=== PATIENT | male | born 1950 | race Caucasian/White ===

== ENCOUNTER 2019-06-02 08:23 | Day surgery (SDC) | payer MEDICARE ==
[~2019-06-02] VITALS: Ht 170.2 cm; Wt 137.3 kg
[2019-06-02] VITALS (7 sets, daily range): BP systolic 102–149; BP diastolic 55–99
[2019-06-02] MEDS ORDERED: diphenhydrAMINE 25mg capsule PO PRN (09:00)
[2019-06-02] MEDS ORDERED: normal saline 1,000 ML IV SCH (09:00)
[2019-06-02] MEDS ORDERED: midazolam 2 mg/2 ml injection ONE ×2 (09:18→10:48)
[2019-06-02] MEDS ORDERED: LIDOcaine 1% w/EPI 1:100,000 30ml vial (MDV) ONE (09:18)
[2019-06-02] MEDS ORDERED: fentaNYL/PF 50MCG/1 ML 2ML syringe ONE ×2 (09:18→10:48)
[2019-06-02] MEDS ORDERED: vancomycin 1,000mg inj ONE ×2 (09:24→10:54)
[2019-06-02] MEDS ORDERED: ceFAZolin 1GM/D5W- ADD-VANTAGE 100 ML IV ONE (09:24)
[2019-06-02 09:31] LABS: BASOPHILS # (AUTO) 0.1 X10'3 (0-0.2); BASOPHILS % (AUTO) 1.4 % (0-1); EOSINOPHILS # (AUTO) 0.3 X10'3 (0-0.9); HEMATOCRIT 34.1 % (42.0-52.0); HEMOGLOBIN 11.7 g/dl (14.0-17.9); LYMPHOCYTES # (AUTO) 1.4 X10'3 (1.1-4.8); LYMPHOCYTES % (AUTO) 34.4 % (21-51); MEAN CORPUSCULAR HEMOGLOBIN 33.9 PG (27.0-31.0); MEAN CORPUSCULAR HGB CONC 34.4 g/dL (33.0-36.5); MEAN CORPUSCULAR VOLUME 98.6 FL (78-98); MEAN PLATELET VOLUME 7.3 FL (7.4-10.4); MONOCYTES # (AUTO) 0.4 X10'3 (0-0.9); MONOCYTES % (AUTO) 10.1 % (2-12); NEUTROPHILS % (AUTO) 48.1 % (42-75); PLATELET COUNT 169 X10'3 (140-440); RED BLOOD COUNT 3.46 X10'6 (4.70-6.10); RED CELL DISTRIBUTION WIDTH 12.5 % (11.5-14.5); WHITE BLOOD COUNT 4.2 X10'3 (4.5-11.0)
[2019-06-02] MEDS ORDERED: BACL10TA PO (09:32)
[2019-06-02] MEDS ORDERED: ALBU18HF2 INH (09:32)
[2019-06-02] MEDS ORDERED: FISH12002 PO (09:32)
[2019-06-02] MEDS ORDERED: APIX5TAB3 PO (09:32)
[2019-06-02] MEDS ORDERED: PER10325T PO (09:32)
[2019-06-02] MEDS ORDERED: GABA-532 PO (09:32)
[2019-06-02] MEDS ORDERED: iron PO (09:32)
[2019-06-02] MEDS ORDERED: ASPI-1265 PO (09:32)
[2019-06-02] MEDS ORDERED: MULT-933 PO (09:32)
[2019-06-02] MEDS ORDERED: CHOL400C8 PO (09:32)
[2019-06-02] MEDS ORDERED: BUDE10.2 INH (09:32)
[2019-06-02] MEDS ORDERED: POLY1DRO2 OP (09:32)
[2019-06-02] MEDS ORDERED: potassium chloride PO (09:32)
[2019-06-02] MEDS ORDERED: FURO40TA4 PO (09:32)
[2019-06-02] MEDS ORDERED: DOCU-148 PO (09:32)
[2019-06-02] MEDS ORDERED: LOSA25TA96 PO (09:32)
[2019-06-02] MEDS ORDERED: GARL1000 PO (09:32)
[2019-06-02] MEDS ORDERED: PROP1DRO7 OP (09:32)
[2019-06-02] MEDS ORDERED: BETA1TAB19 PO (09:32)
[2019-06-02] MEDS ORDERED: CLOT15CR73 TP (09:32)
[2019-06-02 09:43] LABS: ALBUMIN 3.5 G/DL (3.4-5.0); ANION GAP 8 (8-16); BLOOD UREA NITROGEN 26 MG/DL (7-18); BUN/CREATININE RATIO 19.8 (5.4-32.0); CALCIUM 8.8 MG/DL (8.5-10.1); CHLORIDE 106 MMOL/L (99-107); CREATININE 1.31 MG/DL (0.60-1.10); GLUCOSE 113 MG/DL (70-104); MAGNESIUM 2.3 MG/DL (1.5-2.4); POTASSIUM 3.9 MMOL/L (3.5-5.1); SODIUM 141 MMOL/L (135-145); TOTAL CARBON DIOXIDE 27.2 MMOL/L (24-32); eGFR 54 ML/MIN
[2019-06-02] MEDS ORDERED: LIDOcaine 1% (10mg/ml)w/preservative injection 20ml MDV ONE (10:12)
[2019-06-02] MEDS ORDERED: normal saline 1000ml 1,000 ML IV ONE (12:15)
[2019-06-02] MEDS ORDERED: sod chloride 0.9% 10ml flush syringe IV SCH (16:00)
== END 2019-06-02 14:00 | disposition home or self-care (01) ==
LOC: SSTAY O 08:23
PROVIDERS: ATTEND Internal Medicine Cardiovascular Disease
DX: I49.5 Sick sinus syndrome (principal); I25.10 Atherosclerotic heart disease of native coronary artery without angina pectoris; I10 Essential (primary) hypertension; E78.5 Hyperlipidemia, unspecified; E11.9 Type 2 diabetes mellitus without complications; J44.9 Chronic obstructive pulmonary disease, unspecified; E66.01 Morbid (severe) obesity due to excess calories; Z98.890 Other specified postprocedural states; Z79.899 Other long term (current) drug therapy; Z95.1 Presence of aortocoronary bypass graft; Z98.49 Cataract extraction status, unspecified eye; Z82.49 Family history of ischemic heart disease and other diseases of the circulatory system; Z88.6 Allergy status to analgesic agent; Z68.42 Body mass index [BMI] 45.0-49.9, adult
CPT/HCPCS: 33208; 36415; 71046; 80048; 83735; 85025; 85610; 93005; 99152; 99153; C1785; C1898; J0690; J2001; J2250; J3010; J3370; J7030; J7050; A4565

== ENCOUNTER 2020-04-12 07:45 | Day surgery (SDC) | payer MEDICARE ==
[~2020-04-12] VITALS: Ht 170.2 cm; Wt 138.0 kg
[2020-04-12] VITALS (9 sets, daily range): BP systolic 107–127; BP diastolic 53–61
[~2020-04-12 07:45] MED LIST: ALBU18HF2 INH; APIX5TAB3 PO; ASPI-1265 PO; BACL10TA PO; BETA1TAB19 PO; BUDE10.2 INH; CHOL400C8 PO; CLOT15CR73 TP; DOCU-148 PO; FISH12002 PO; FURO40TA4 PO; GABA-532 PO; GARL1000 PO; LOSA25TA96 PO; MULT-933 PO; PER10325T PO; POLY1DRO2 OP; PROP1DRO7 OP; iron PO; potassium chloride PO
[2020-04-12] MEDS ORDERED: diphenhydrAMINE 25mg capsule PO PRN (08:15)
[2020-04-12] MEDS ORDERED: normal saline 1,000 ML IV SCH ×2 (08:15→10:45)
[2020-04-12] MEDS ORDERED: LIDOcaine/PRILOcaine 5gm cream TP ONE (08:30)
[2020-04-12 08:51] LABS: EOSINOPHILS # (AUTO) 0.2 X10'3 (0-0.9); HEMOGLOBIN 10.7 g/dl (14.0-17.9); LYMPHOCYTES # (AUTO) 1.3 X10'3 (1.1-4.8); MONOCYTES # (AUTO) 0.4 X10'3 (0-0.9); MONOCYTES % (AUTO) 9.8 % (2-12); NEUTROPHILS # (AUTO) 2.2 X10'3 (1.8-7.7); WHITE BLOOD COUNT 4.1 X10'3 (4.5-11.0)
[2020-04-12 08:53] LABS: BASOPHILS % (AUTO) 0.7 % (0-1); EOSINOPHILS % (AUTO) 3.9 % (0-6); HEMATOCRIT 31.5 % (42.0-52.0); LYMPHOCYTES % (AUTO) 31.1 % (21-51); MEAN CORPUSCULAR HEMOGLOBIN 33.3 PG (27.0-31.0); MEAN CORPUSCULAR HGB CONC 33.9 g/dL (33.0-36.5); MEAN PLATELET VOLUME 6.9 FL (7.4-10.4); NEUTROPHILS % (AUTO) 54.5 % (42-75); PLATELET COUNT 193 X10'3 (140-440); RED BLOOD COUNT 3.22 X10'6 (4.70-6.10); RED CELL DISTRIBUTION WIDTH 13.4 % (11.5-14.5)
[2020-04-12 09:01] LABS: ALBUMIN 3.4 G/DL (3.4-5.0); ANION GAP 5 (8-16); BLOOD UREA NITROGEN 24 MG/DL (7-18); BUN/CREATININE RATIO 15.1 (5.4-32.0); CALCIUM 8.7 MG/DL (8.5-10.1); CHLORIDE 109 MMOL/L (99-107); CREATININE 1.59 MG/DL (0.60-1.10); GLUCOSE 112 MG/DL (70-104); MAGNESIUM 2.3 MG/DL (1.5-2.4); POTASSIUM 3.9 MMOL/L (3.5-5.1); SODIUM 144 MMOL/L (135-145); eGFR 43 ML/MIN
[2020-04-12] MEDS ORDERED: midazolam 2 mg/2 ml injection ONE ×2 (09:01→09:30)
[2020-04-12] MEDS ORDERED: LIDOcaine 1% (10mg/ml)w/preservative injection 20ml MDV ONE (09:01)
[2020-04-12] MEDS ORDERED: iohexol 350 MG/ML 50ML vial IV ONE ×2 (09:01→10:03)
[2020-04-12] MEDS ORDERED: verapamil 2.5 mg/ml inj IV ONE (09:01)
[2020-04-12] MEDS ORDERED: heparin 1,000unit/ml 10ml vial 10 ML ONE (09:01)
[2020-04-12] MEDS ORDERED: nitroGLYCERIN-Tridil 50MG/D5W 250 ML IV ONE (09:01)
[2020-04-12] MEDS ORDERED: iohexol 350MG/ML 100ml bottle IV ONE ×2 (09:01→10:01)
[2020-04-12] MEDS ORDERED: fentaNYL/PF 50MCG/1 ML 2ML syringe ONE (09:01)
[2020-04-12] MEDS ORDERED: AMIO200T61 PO (09:24)
[2020-04-12] MEDS ORDERED: HYDROmorphone 1 mg/ml syringe ONE (10:07)
== END 2020-04-12 14:10 | disposition home or self-care (01) ==
LOC: SSTAY O 07:45
PROVIDERS: ATTEND Internal Medicine Cardiovascular Disease
DX: R94.39 Abnormal result of other cardiovascular function study (principal); I25.118 Atherosclerotic heart disease of native coronary artery with other forms of angina pectoris; I49.5 Sick sinus syndrome; I25.82 Chronic total occlusion of coronary artery; I48.0 Paroxysmal atrial fibrillation; I10 Essential (primary) hypertension; E78.5 Hyperlipidemia, unspecified; E11.9 Type 2 diabetes mellitus without complications; J44.9 Chronic obstructive pulmonary disease, unspecified; E66.01 Morbid (severe) obesity due to excess calories; Z68.42 Body mass index [BMI] 45.0-49.9, adult; Z79.899 Other long term (current) drug therapy; Z98.890 Other specified postprocedural states; Z95.0 Presence of cardiac pacemaker; Z98.49 Cataract extraction status, unspecified eye; Z95.1 Presence of aortocoronary bypass graft; Z87.891 Personal history of nicotine dependence; Z88.5 Allergy status to narcotic agent; Z80.8 Family history of malignant neoplasm of other organs or systems; Z82.49 Family history of ischemic heart disease and other diseases of the circulatory system
CPT/HCPCS: 36415; 80048; 83735; 85025; 85610; 93005; 93455; 99152; 99153; C1769; C1894; J1170; J1644; J2001; J2250; J3010; J7030; Q0163; Q9967; A4620; A5120; A6258; J3490

== ENCOUNTER 2020-08-02 09:17 | Day surgery (SDC) | payer MEDICARE ==
[~2020-08-02] VITALS: Ht 167.6 cm; Wt 141.8 kg
[2020-08-02] VITALS (13 sets, daily range): BP systolic 110–131; BP diastolic 44–66
[~2020-08-02 09:17] MED LIST changes: -ALBU18HF2 INH; +AMIO200T61 PO; -CLOT15CR73 TP
[2020-08-02] MEDS ORDERED: fentaNYL/PF 50MCG/1 ML 2ML syringe IV ONE (09:45)
[2020-08-02] MEDS ORDERED: MIDAZolam 1mg/ml 10ml vial IV ONE (09:45)
[2020-08-02] MEDS ORDERED: NYSPWD TP (09:56)
[2020-08-02] MEDS ORDERED: FENO54TA PO (09:56)
[2020-08-02] MEDS ORDERED: CLOT30CR24 TOP (09:56)
[2020-08-02] MEDS ORDERED: normal saline 1000ml 1,000 ML IV SCH (10:10)
[2020-08-02 10:51] LABS: BASOPHILS # (AUTO) 0.1 X10'3 (0-0.2); BASOPHILS % (AUTO) 1.1 % (0-1); EOSINOPHILS # (AUTO) 0.2 X10'3 (0-0.9); EOSINOPHILS % (AUTO) 3.8 % (0-6); HEMATOCRIT 32.4 % (42.0-52.0); HEMOGLOBIN 10.7 g/dl (14.0-17.9); LYMPHOCYTES # (AUTO) 1.1 X10'3 (1.1-4.8); LYMPHOCYTES % (AUTO) 17.3 % (21-51); MEAN CORPUSCULAR HEMOGLOBIN 32.5 PG (27.0-31.0); MEAN CORPUSCULAR HGB CONC 33.2 g/dL (33.0-36.5); MEAN CORPUSCULAR VOLUME 97.9 FL (78-98); MONOCYTES # (AUTO) 0.5 X10'3 (0-0.9); NEUTROPHILS # (AUTO) 4.2 X10'3 (1.8-7.7); NEUTROPHILS % (AUTO) 68.8 % (42-75); PLATELET COUNT 198 X10'3 (140-440); RED BLOOD COUNT 3.31 X10'6 (4.70-6.10); RED CELL DISTRIBUTION WIDTH 13.2 % (11.5-14.5); WHITE BLOOD COUNT 6.1 X10'3 (4.5-11.0)
[2020-08-02 11:07] LABS: ALANINE AMINOTRANSFERASE 18 U/L (12-78); ALBUMIN 3.5 G/DL (3.4-5.0); ALBUMIN/GLOBULIN RATIO 0.9 (1.1-1.5); ALKALINE PHOSPHATASE 49 IU/L (46-116); ANION GAP 8 (8-16); ASPARTATE AMINO TRANSFERASE 24 U/L (10-37); BILIRUBIN,TOTAL 0.5 MG/DL (0.1-1.0); BLOOD UREA NITROGEN 31 MG/DL (7-18); BUN/CREATININE RATIO 19.9 (5.4-32.0); CALCIUM 8.9 MG/DL (8.5-10.1); CHLORIDE 107 MMOL/L (99-107); CREATININE 1.56 MG/DL (0.60-1.10); GLUCOSE 126 MG/DL (70-104); MAGNESIUM 2.2 MG/DL (1.5-2.4); SODIUM 143 MMOL/L (135-145); TOTAL CARBON DIOXIDE 28.4 MMOL/L (24-32); TOTAL PROTEIN 7.5 G/DL (6.4-8.2); eGFR 44 ML/MIN
== END 2020-08-02 12:00 | disposition home or self-care (01) ==
LOC: SSTAY O 09:17
PROVIDERS: ATTEND Internal Medicine Cardiovascular Disease
DX: I48.91 Unspecified atrial fibrillation (principal); Z79.899 Other long term (current) drug therapy; Z88.5 Allergy status to narcotic agent; Z88.1 Allergy status to other antibiotic agents; Z88.8 Allergy status to other drugs, medicaments and biological substances; Z91.040 Latex allergy status
CPT/HCPCS: 36415; 80053; 83735; 85025; 92960; 93005; 94760; J2250; J3010; J7030